=== PATIENT | male | born 1980 | race African-American/Black ===

== ENCOUNTER 2020-07-15 22:29 | Emergency (ER) | payer BC ==
[~2020-07-15] VITALS: Ht 188 cm; Wt 92.1 kg
[2020-07-15 22:42] VITALS: BP 141/75
--- NOTE | 2020-07-15 22:47 | NUR ---
PT AMBULATED TO ER BED 11 W/ STEADY GAIT.
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
--- NOTE | 2020-07-15 23:29 | NUR ---
ERMD AT BEDSIDE EVALUATING PT
[2020-07-15] MEDS ORDERED: IBUPROFEN 800 MG TAB PO ONE (23:45)
--- NOTE | 2020-07-16 | NUR ---
PT TAKEN TO RAD VIA WHEELCHAIR
--- NOTE | 2020-07-16 00:50 | NUR ---
PAIN LEVEL AT 5/10. PT DENIED FOR FURTHER PAIN MANAGEMENT AT THIS TIME.
[2020-07-16 01:14] VITALS: BP 144/75
--- NOTE | 2020-07-16 01:14 | NUR ---
Patient discharged with v/s stable. Written and verbal after care instructions given and explained. Patient alert, oriented and verbalized understanding of instructions. Ambulatory with steady gait. All questions addressed prior to discharge. ID band removed. Patient advised to follow up with PMD. Rx of MOTRIN AND ROBAXIN given. Patient educated on indication of medication including possible reaction and side effects. Opportunity to ask questions provided and answered.
== END 2020-07-16 01:14 | disposition home or self-care (01) ==
LOC: MED 22:29
DX: S16.1XXA Strain of muscle, fascia and tendon at neck level, initial encounter (principal); S39.012A Strain of muscle, fascia and tendon of lower back, initial encounter; R03.0 Elevated blood-pressure reading, without diagnosis of hypertension; V89.2XXA Person injured in unspecified motor-vehicle accident, traffic, initial encounter; Y93.89 Activity, other specified; Y92.89 Other specified places as the place of occurrence of the external cause; Y99.8 Other external cause status
CPT/HCPCS: 72040; 72100; 99284